=== PATIENT | male | born 1940 | race Caucasian/White ===

== ENCOUNTER 2017-11-07 16:36 | Emergency (ER) | payer OTHER ==
[~2017-11-07] VITALS: Ht 177.8 cm; Wt 65.3 kg
[2017-11-07 20:00] VITALS: BP 122/71
== END 2017-11-07 20:00 | disposition home or self-care (01) ==
LOC: ED 16:36
DX: M25.552 Pain in left hip (principal); M79.642 Pain in left hand; M25.532 Pain in left wrist; M79.89 Other specified soft tissue disorders

== ENCOUNTER 2019-09-24 17:45 | Emergency (ER) | payer OTHER ==
[~2019-09-24] VITALS: Ht 177.8 cm; Wt 72.6 kg
[2019-09-24 18:00] VITALS: Ht 177.8 cm; Wt 72.6 kg
[2019-09-24 18:25] LABS: BASOPHIL % 0.5 % (0-2); PLATELET COUNT 122 x10^3mcL (130-400)
[2019-09-24 18:29] LABS: CALCIUM 8.2 mg/dL (8.5-10.1); CARBON DIOXIDE 25.7 mmol/L (21-32); CHLORIDE SERUM 109 mmol/L (98-107); CREATININE SERUM 1.4 mg/dL (0.7-1.3); GLUCOSE SERUM 99 mg/dL (74-106); POTASSIUM SERUM 3.9 mmol/L (3.5-5.1); SODIUM SERUM 144 mmol/L (136-145)
[2019-09-24 18:33] LABS: ALBUMIN 3.5 g/dL (3.4-5.0); ALKALINE PHOSPHATASE 57 U/L (46-116); ALT/SGPT 15 U/L (16-63); AST/SGOT 15 U/L (15-37); BILIRUBIN TOTAL 0.7 mg/dL (0.20-1.00); TOTAL PROTEIN, SERUM 6.8 g/dL (6.4-8.2)
[2019-09-24 18:41] LABS: microscopic required? NO
[2019-09-24 18:52] LABS: UA SPECIFIC GRAVITY 1.025 (1.005-1.035); urine erythrocyte NEGATIVE (NEGATIVE)
[2019-09-24 22:21] VITALS: BP 144/79
== END 2019-09-24 22:21 ==
LOC: ED 17:45
PROVIDERS: Emergency Medicine
DX: G30.9 Alzheimer's disease, unspecified (principal); F02.81 Dementia in other diseases classified elsewhere, unspecified severity, with behavioral disturbance; F79 Unspecified intellectual disabilities; Z98.890 Other specified postprocedural states
CPT/HCPCS: J1630; Q0092